=== PATIENT | male | born 1960 | race Caucasian/White ===

== ENCOUNTER 2017-01-10 10:17 | Emergency (ER) | payer OTHER, MEDICAID ==
[~2017-01-10] VITALS: Ht 185.4 cm; Wt 88.3 kg
[~2017-01-10 10:17] MED LIST: CYCL-259 PO; DARU800T PO; FENO145T13 PO; LORA1TAB PO; METF500T4 PO; RALT400T PO; RANI150T4 PO; RITO100T PO
[2017-01-10 10:19] VITALS: BP 121/83
[2017-01-10] MEDS ORDERED: LIDOCAINE 1%, 20ML SQ ONE (11:00)
[2017-01-10] MEDS ORDERED: LIDOCAINE 1%, 20ML ONE (11:20)
[2017-01-10] MEDS ORDERED: BACITRACIN ZINC OINT 500U/GM, 0.9 GM ONE ×2 (12:04→12:05)
== END 2017-01-10 12:29 | disposition home or self-care (01) ==
LOC: ED 12:15
DX: L02.31 Cutaneous abscess of buttock (principal); Z88.1 Allergy status to other antibiotic agents; Z88.0 Allergy status to penicillin
CPT/HCPCS: 10060

== ENCOUNTER → 2017-03-15 | Outpatient (CLI) | payer OTHER, MEDICAID ==
[~2017-03-15] MED LIST changes: -DARU800T PO; +DARU800T2 PO; +REGADENOSON 0.4 MG/5 ML SYRINGE ONE
== END | disposition home or self-care (01) ==
LOC: CFH 06:38
PROVIDERS: ATTEND Internal Medicine Cardiovascular Disease
DX: I25.9 Chronic ischemic heart disease, unspecified (principal)
CPT/HCPCS: 78452; 93017; 93306; A9502; J2785